=== PATIENT | female | born 1985 | race Caucasian/White ===

== ENCOUNTER 2023-12-14 14:12 | Outpatient (CLI) | payer BC ==
[2023-12-14 15:27] LABS: Basophils % (A) 1 %; Eosinophils # (A) 0.2 k/uL (0-0.7); Eosinophils % (A) 5 %; HCT 37.8 % (34.0-46.0); HGB 12.4 gm/dL (11.4-16.0); Lymphocytes % (A) 26 %; MCH 30.4 pg (25.0-35.0); MCHC 32.8 g/dL (31.0-37.0); MCV 92.5 fL (80.0-100.0); Mean Platelet Volume 8.4; Monocytes # (A) 0.2 k/uL (0-1.0); Monocytes % (A) 5 %; Neutrophils # (A) 2.3 k/uL (1.3-7.7); Neutrophils % (A) 62 %; Platelet Count 197 k/uL (150-450); RBC 4.09 m/uL (3.80-5.40); RDW 13.7 % (11.5-15.5); WBC 3.7 k/uL (3.8-10.6)
== END 2023-12-14 16:11 | disposition home or self-care (01) ==
LOC: FBPOP 14:12
PROVIDERS: ATTEND Obstetrics & Gynecology
DX: O72.3 Postpartum coagulation defects (principal)
CPT/HCPCS: 85025; 99213

== ENCOUNTER → 2025-05-30 | Outpatient (CLI) | payer OTHER ==
--- NOTE | 2025-05-30 14:35 | XR ---
EXAMINATION TYPE: XR lumbar spine 2 or 3V DATE OF EXAM: 05/30/2025 12:04 PM COMPARISON: None. CLINICAL INDICATION: Female, 40 years old with history of G89.20 chronic pain, pain TECHNIQUE: 3 view(s) obtained. FINDINGS: There are 5 lumbar-type vertebral bodies. Pedicles are intact. Disc heights are preserved. Vertebral body heights are preserved. Alignment is normal. Follow-up MRI can be performed as clinically indicat ed. IMPRESSION: 1. Unremarkable three-view lumbar spine [facility], Workstation: [facility], 05/30/2025 2:33 PM
--- NOTE | 2025-05-30 14:36 | XR ---
EXAMINATION TYPE: XR cervical spine limited DATE OF EXAM: 05/30/2025 12:04 PM COMPARISON: None. CLINICAL INDICATION: Female, 40 years old with history of M54.2 cervicalgia, pain TECHNIQUE: 3 view(s) obtained. FINDINGS: No acute fracture evident. Prevertebral space is normal. There is mild kyphosis centered at C5. Poste rior spinal lamellar line is intact. Disc heights are preserved. Vertebral body heights are preserved. Odontoid is limited with overlying incisors. IMPRESSION: 1. No acute osseous abnormality radiographically apparent. 2. Cervical kyphosis which can be related to patient positioning or muscle spasm [facility], Workstation: [facility] [place] [facility], 05/30/2025 2:34 PM
== END | disposition home or self-care (01) ==
LOC: RADXRMAIN 11:24
PROVIDERS: ATTEND Family Medicine
DX: M54.2 Cervicalgia (principal); G89.29 Other chronic pain
CPT/HCPCS: 72040; 72100